=== PATIENT | female | born 1965 | race Caucasian/White ===

== ENCOUNTER 2025-09-26 18:04 | Emergency (ER) | payer MEDICAID ==
[~2025-09-26] VITALS: Ht 149.9 cm; Wt 54.5 kg
[2025-09-27 00:05] VITALS: BP 130/66; PULSE 68; RESP 18; O2SAT 99
[2025-09-27] MEDS: ketorolac trometh 15mg/ml vial 15 MG/ML ML IM ONE (00:36)
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
[2025-09-27 00:51] VITALS: TEMP 98.6
--- NOTE | 2025-09-27 17:46 | VASCULAR REPORT ---
Right lower extremity venous duplex CLINICAL HISTORY: Swelling. COMPARISON: None TECHNIQUE: Duplex Doppler evaluation of the deep venous system of the right lower extremity from the common femoral vein to the popliteal vein including color Doppler and spectral/pulsed waveform analysis was performed. FINDINGS: The common femoral vein demonstrates appropriate compressibility and waveform variability. There is compressibility/patency of the great saphenous vein at the proximal thigh. The femoral vein demonstrates appropriate compressibility and waveform variability. The deep femoral vein demonstrates appropriate compressibility and waveform variability. The popliteal vein demonstrates appropriate compressibility and waveform variability. There is normal compressibility at the tibioperoneal trunk. Probable waite's cyst on the right measuring 2.4 x 1.7 cm. Small amount of surrounding edema. IMPRESSION: No right femoropopliteal venous thrombosis. Suspect a partially ruptured waite's cyst.
== END 2025-09-27 00:52 | disposition home or self-care (01) ==
LOC: ER 18:05
DX: M25.561 Pain in right knee (principal)
CPT/HCPCS: 93971; 96372; 99285; J1885

== ENCOUNTER 2025-10-03 21:42 | Emergency (ER) | payer MEDICAID ==
[~2025-10-03] VITALS: Ht 149.9 cm; Wt 56.8 kg
--- NOTE | 2025-10-03 22:16 | ELECTROCARDIOGRAPH REPORT ---
[facility] Test Date: 2025-10-03 Test Time: 22:14:45 Pat Name: LUZ WILKINS Department: [id number] Room: Gender: F Web Marketing Strategist: : 1965 Requested By: JOSE GUNTER Order Number: [id number] Reading MD: Measurements Intervals [place] Rate: 102 P: 62 NC: 146 QRS: 42 QRSD: 84 T: 54 QT: 336 QTc: 438 Interpretive Statements Sinus tachycardia Probable left atrial enlargement Please click the below link to view image of tracing.
--- NOTE | 2025-10-03 23:03 | RADIOLOGY REPORT ---
CLINICAL INDICATION: KNEE PAIN RIGHT TECHNIQUE: KNEE CMPTDI KNEE, COMP 4 VW MIN COMPARISON: None FINDINGS/IMPRESSION: : There is no evidence of acute fracture or dislocation. Relatively mild tricompartmental degenerative changes with joint space narrowing. Soft tissues are unremarkable.
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
[2025-10-04 00:05] VITALS: BP 132/74; PULSE 123; RESP 18; TEMP 98.6; O2SAT 99
== END 2025-10-04 00:06 | disposition home or self-care (01) ==
LOC: ER 21:42
DX: M25.561 Pain in right knee (principal); I49.8 Other specified cardiac arrhythmias
CPT/HCPCS: 73564; 93005; 99283